=== PATIENT | male | born 1955 | race Caucasian/White ===

== ENCOUNTER 2023-04-06 06:45 | Day surgery (SDC) | payer BC, MEDICARE ==
[~2023-04-06 06:45] MED LIST: Lactated Ringers 1,000 ML IV SCH; Sodium Chloride 0.9% 10 ML Syringe FLUSH PRN
[2023-04-06] MEDS ORDERED: diphenhydrAMINE 50 MG/ML SDV IVPUSH ONE (06:46)
[2023-04-06] MEDS ORDERED: Succinylcholine 200 MG/10 ML MDV IV ONE (06:46)
[2023-04-06] MEDS ORDERED: Propofol 200 MG/20 ML SDV IV ONE (06:46)
[2023-04-06] MEDS ORDERED: fentaNYL 100 MCG/2 ML SDV IV ONE (06:46)
[2023-04-06] MEDS ORDERED: ceFAZolin 1 GM Vial IV ONE (06:46)
[2023-04-06] MEDS ORDERED: Sugammadex Sodium 200 MG/2 ML VIAL IV ONE (06:46)
[2023-04-06] MEDS ORDERED: Midazolam 1 MG/ML 2 ML SDV IV ONE (06:46)
[2023-04-06] MEDS ORDERED: Labetalol 100 MG/20 ML MDV IV ONE (06:46)
[2023-04-06] MEDS ORDERED: Dexamethasone 4 MG/ML 5 ML MDV IVPUSH ONE (06:46)
[2023-04-06] MEDS ORDERED: Bupivacaine 0.25% 30 ML SDV INJECT ONE (08:54)
[2023-04-06] MEDS ORDERED: Ondansetron 4 MG/2 ML SDV IVPUSH ONE (10:35)
[2023-04-06] MEDS ORDERED: Lactated Ringers 1,000 ML IV ONE (10:35)
[2023-04-06] MEDS ORDERED: Rocuronium 100 MG/10 ML MDV IV ONE (10:35)
[2023-04-06] MEDS ORDERED: Acetaminophen/HYDROcodone 325-5 MG Tab PO ONE (10:55)
== END 2023-04-06 11:51 | disposition home or self-care (01) ==
LOC: FB.SDS 06:45
PROVIDERS: ATTEND Surgery
DX: K81.1 Chronic cholecystitis (principal); K43.9 Ventral hernia without obstruction or gangrene; G47.33 Obstructive sleep apnea (adult) (pediatric); F32.A Depression, unspecified; E78.00 Pure hypercholesterolemia, unspecified; K21.9 Gastro-esophageal reflux disease without esophagitis; E66.9 Obesity, unspecified; Z79.82 Long term (current) use of aspirin; Z88.0 Allergy status to penicillin; Z79.899 Other long term (current) drug therapy
CPT/HCPCS: 00790; 47562; 88304; A9270; J0330; J0690; J1100; J1200; J2250; J2405; J2704; J3010; J3490; J7120